=== PATIENT | female | born 1955 | race American Indian/Alaskan Native ===

== ENCOUNTER 2018-02-27 10:46 | Outpatient (CLI) | payer MEDICARE ==
[2018-02-27 12:34] LABS: Hematocrit 33.7 % (30.3-42.9); Hemoglobin 11.3 gm/dl (10.1-14.3); Mean Corpuscular HGB Conc 34 % (30-34); Mean Corpuscular Hemoglobin 29 pg (28-32); Mean Corpuscular Volume 88 fl (79-97); Platelet Count 217 K/mm3 (140-440); Red Blood Count 3.85 M/mm3 (3.65-5.03)
[2018-02-27 12:54] LABS: Alanine Aminotransferase 11 units/L (7-56); Albumin 4.1 g/dL (3.9-5); BUN/Creatinine Ratio 14; Blood Urea Nitrogen 36 mg/dL (7-17); Calcium 9.3 mg/dL (8.4-10.2); Hemolysis Index 36
[2018-02-27 13:02] LABS: Amphetamine Screen,Urine PRESUMPTIVE NEGATIVE; Benzodiazepines Screen,Urine PRESUMPTIVE NEGATIVE; Cannabinoid Screen,Urine PRESUMPTIVE NEGATIVE; Cocaine Screen,Urine PRESUMPTIVE NEGATIVE; Methadone Screen,Urine PRESUMPTIVE NEGATIVE; Opiate Screen,Urine PRESUMPTIVE NEGATIVE
[2018-02-27 13:35] LABS: Hepatitis A Antibody IgM Non-Reactive (NonReactive); Hepatitis B Core IgM Non-Reactive (NonReactive); Hepatitis B Surface Antigen Non-Reactive (Negative); Hepatitis C Virus Antibody Non-Reactive (NonReactive)
== END 2018-02-27 10:47 | disposition home or self-care (01) ==
LOC: LAB 10:46
PROVIDERS: ATTEND Internal Medicine Hematology & Oncology
DX: Z01.818 Encounter for other preprocedural examination (principal); I12.0 Hypertensive chronic kidney disease with stage 5 chronic kidney disease or end stage renal disease; N18.9 Chronic kidney disease, unspecified; E78.00 Pure hypercholesterolemia, unspecified; E03.9 Hypothyroidism, unspecified
CPT/HCPCS: 36415; 80053; 80074; 80307; 85027; 87806

== ENCOUNTER 2018-02-27 12:49 | Outpatient (CLI) | payer MEDICARE ==
--- NOTE | 2018-02-27 15:19 | Fluoroscopy Report ---
UPPER GI AIR CONTRAST: History: Presurgical planning for gastric bypass. FINDINGS: The patient ingested barium without difficulty. The esophageal contour is normal. There are no ulcerations or filling defects seen in the esophagus. There is normal esophageal motility. There is no hiatal hernia or reflux. The gastric contour and position appear normal. There are no ulcerations or filling defects in the stomach. The duodenal bulb and duodenal sweep appear normal. IMPRESSION: Negative double contrast upper GI examination.
== END 2018-02-27 12:50 | disposition home or self-care (01) ==
LOC: FLUORO 12:49
PROVIDERS: ATTEND Internal Medicine Hematology & Oncology
DX: Z01.818 Encounter for other preprocedural examination (principal); R13.10 Dysphagia, unspecified; I12.9 Hypertensive chronic kidney disease with stage 1 through stage 4 chronic kidney disease, or unspecified chronic kidney disease; N18.9 Chronic kidney disease, unspecified; E78.5 Hyperlipidemia, unspecified; E66.9 Obesity, unspecified; E66.01 Morbid (severe) obesity due to excess calories
CPT/HCPCS: 74247

== ENCOUNTER 2019-06-07 09:06 | Outpatient (CLI) | payer MEDICARE, OTHER ==
--- NOTE | 2019-06-07 13:48 | Cat Scan Report ---
CT ABDOMEN AND PELVIS WITHOUT CONTRAST HISTORY: R10.9) ABD PAIN. Acute generalized abdominal pain COMPARISON: CT abdomen/pelvis from 04/24/2017 TECHNIQUE: CT images of the abdomen and pelvis were obtained without administration of intravenous co ntrast. All CT scans at this location are performed using CT dose reduction for ALARA by means of au tomated exposure control. FINDINGS: Lungs/bones: There is minimal bibasilar atelectasis. There are degenerative changes throughout the s pine and pelvis, with left posterior construct at the thoracolumbar junction and segmental kyphosis a gain noted. The intervertebral body fusion device projects left of midline outside of the disc space area as was present on the previous exam. Abdomen/pelvis: The gallbladder is surgically absent. There is a small amount of pneumobilia consist ent with sphincterotomy change. This was also present on the 2017 exam. The liver otherwise appears u nremarkable. The spleen, pancreas, right adrenal gland, and kidneys appear unremarkable. Gastric bypa ss changes are present. Proximal GI tract otherwise appears unremarkable. There is mild left adrenal thickening. Urinary bladder is unremarkable. Uterus is surgically absent. No pelvic free fluid and no acute colon ic abnormality in this patient with diverticulosis. Midline ventral hernia repair change is present without recurrent hernia. IMPRESSION: 1. No acute abnormality identified. 2. Largely unchanged incidental/postoperative findings as above. Signer Name: Anthony Smart MD Signed: 06/07/2019 1:44 PM Workstation Name: [id number]
== END 2019-06-07 09:07 | disposition home or self-care (01) ==
LOC: CT 09:06
PROVIDERS: ATTEND Internal Medicine Gastroenterology
DX: R10.84 Generalized abdominal pain (principal); J98.11 Atelectasis; M47.895 Other spondylosis, thoracolumbar region; Z90.710 Acquired absence of both cervix and uterus; I10 Essential (primary) hypertension; E78.00 Pure hypercholesterolemia, unspecified; E03.9 Hypothyroidism, unspecified; Z90.49 Acquired absence of other specified parts of digestive tract; Z90.89 Acquired absence of other organs
CPT/HCPCS: 36415; 74176; 82565; 84520

== ENCOUNTER 2020-08-11 14:06 | Emergency (ER) | payer MEDICARE ==
[2020-08-11] MEDS ORDERED: fentaNYL 100 MCG/2 ML INJ IV ONE ×2 (14:53→15:59)
[2020-08-11 15:28] LABS: Basophils % (Auto) 0.6 % (0.0-1.8); Eosinophils # (Auto) 0.2 K/mm3 (0.0-0.4); Hematocrit 28.2 % (30.3-42.9); Hemoglobin 9.2 gm/dl (10.1-14.3); Lymphocytes # (Auto) 1.3 K/mm3 (1.2-5.4); Lymphocytes % (Auto) 29.5 % (13.4-35.0); Mean Corpuscular HGB Conc 33 % (30-34); Mean Corpuscular Volume 91 fl (79-97); Monocytes # (Auto) 0.4 K/mm3 (0.0-0.8); Monocytes % (Auto) 8.9 % (0.0-7.3); Platelet Count 142 K/mm3 (140-440); Red Cell Distribution Width 15.2 % (13.2-15.2)
[2020-08-11 15:44] LABS: Calcium 9.5 mg/dL (8.4-10.2)
--- NOTE | 2020-08-11 16:31 | Emergency Department Report ---
ED General Adult HPI - General Chief complaint: Nausea/Vomiting/Diarrhea Stated complaint: BOWEL OBSTRUCTION Time Seen by Provider: 08/11/20 14:47 Source: EMS Mode of arrival: Stretcher Limitations: No Limitations - History of Present Illness Initial comments: Patient is a 64-year-old female who presents with nausea and vomiting and abdominal pain that is been going on for last 9 days. Patient's pain is a 8 out of 10 it is an achy type of pain nothing makes it better and pressing on her abdomen makes it worse. She states she has had this abdominal pain happened before she was sent in by her doctor to rule out a small bowel obstruction. Severity scale (0 -10): 10 - Related Data Home Medications Medication Instructions Recorded Confirmed Last Taken Gabapentin 300 mg PO BID PRN 10/23/13 08/11/20 02/25/14 20:00 300 mg Amlodipine Besylate [Norvasc] 5 mg PO DAILY 04/23/17 08/11/20 Unknown Levothyroxine [Synthroid] 50 mcg PO QAM 04/23/17 08/11/20 Unknown Metoprolol Tartrate 25 mg PO QDAY 04/23/17 08/11/20 Unknown Furosemide [Lasix] 20 mg PO QDAY 08/11/20 08/11/20 Unknown Hydroxyzine HCl [hydrOXYzine] 25 mg PO DAILY 08/11/20 08/11/20 Unknown Potassium Chloride [Klor-Con M15] 10 meq PO DAILY 08/11/20 08/11/20 Unknown Previous Rx's Medication Instructions Recorded Last Taken Type Promethazine [Phenergan] 25 mg PO Q6HR PRN #20 tab 08/11/20 Unknown Rx Allergies Allergy/AdvReac Type Severity Reaction Status Date / Time acetaminophen [From Lortab] Allergy Angioedema Verified 04/19/14 13:40 aspirin Allergy Hives Verified 10/23/13 03:11 hydrocodone bitartrate Allergy Angioedema Verified 04/19/14 13:40 [From Lortab] iodine Allergy Unknown Verified 04/19/14 00:36 ketorolac tromethamine Allergy Hives Verified 04/19/14 13:40 [From Toradol] morphine Allergy Angioedema Verified 10/23/13 03:11 oxycodone HCl [From Percocet] Allergy Hives Verified 10/23/13 03:11 butorphanol tartrate AdvReac Unknown Verified 10/23/13 03:11 [From Stadol] ED Review of Systems ROS: Stated complaint: BOWEL OBSTRUCTION Other details as noted in HPI Constitutional: denies: chills, fever Eyes: denies: eye pain, eye discharge, vision change ENT: denies: ear pain, throat pain Respiratory: denies: cough, shortness of breath, wheezing Cardiovascular: denies: chest pain, palpitations Endocrine: no symptoms reported Gastrointestinal: abdominal pain, nausea, vomiting. denies: diarrhea Genitourinary: denies: urgency, dysuria, discharge Musculoskeletal: denies: back pain, joint swelling, arthralgia Skin: denies: rash, lesions Neurological: denies: headache, weakness, paresthesias Psychiatric: denies: anxiety, depression Hematological/Lymphatic: denies: easy bleeding, easy bruising ED Past Medical Hx - Past Medical History Hx Hypertension: Yes Hx Congestive Heart Failure: No Hx Diabetes: No Hx Renal Disease: Yes (chronic renal insufficiency) Hx Asthma: No Hx COPD: No Additional medical history: polyneuropathy, dz of lumbar region, backache unspecified, gastroparesis, pancreatitis - Surgical History Hx Cholecystectomy: Yes Hx Appendectomy: Yes Additional Surgical History: back surgery (2010), port placed in right chest (2013), umbilical Hernia repair - Social History Smoking Status: Unknown if ever smoked - Medications Home Medications: Home Medications Medication Instructions Recorded Confirmed Last Taken Type Gabapentin 300 mg PO BID PRN 10/23/13 08/11/20 02/25/14 20:00 History 300 mg Amlodipine Besylate [Norvasc] 5 mg PO DAILY 04/23/17 08/11/20 Unknown History Levothyroxine [Synthroid] 50 mcg PO QAM 04/23/17 08/11/20 Unknown History Metoprolol Tartrate 25 mg PO QDAY 04/23/17 08/11/20 Unknown History Furosemide [Lasix] 20 mg PO QDAY 08/11/20 08/11/20 Unknown History Hydroxyzine HCl [hydrOXYzine] 25 mg PO DAILY 08/11/20 08/11/20 Unknown History Potassium Chloride [Klor-Con M15] 10 meq PO DAILY 08/11/20 08/11/20 Unknown History Promethazine [Phenergan] 25 mg PO Q6HR PRN #20 tab 08/11/20 Unknown Rx ED Physical Exam - General Limitations: No Limitations General appearance: alert, in no apparent distress - Head Head exam: Present: atraumatic, normocephalic - Eye Eye exam: Present: normal appearance - ENT ENT exam: Present: mucous membranes moist - Neck Neck exam: Present: normal inspection - Respiratory Respiratory exam: Present: normal lung sounds bilaterally. Absent: respiratory distress - Cardiovascular Cardiovascular Exam: Present: regular rate, normal rhythm. Absent: systolic murmur, diastolic murmur, rubs, gallop - GI/Abdominal GI/Abdominal exam: Present: tenderness (Epigastric tenderness) - Extremities Exam Extremities exam: Present: normal inspection - Back Exam Back exam: Present: normal inspection - Neurological Exam Neurological exam: Present: alert, oriented X3 - Psychiatric Psychiatric exam: Present: normal affect, normal mood - Skin Skin exam: Present: warm, dry, intact, normal color. Absent: rash ED Course Vital Signs 08/11/20 08/11/20 08/11/20 14:20 14:27 14:49 Temperature 98.2 F Pulse Rate 80 81 Respiratory 18 18 18 Rate Blood Pressure 167/102 Blood Pressure 156/81 [Left] O2 Sat by Pulse 99 99 100 Oximetry 08/11/20 17:44 Temperature Pulse Rate 81 Respiratory 18 Rate Blood Pressure Blood Pressure 142/88 [Left] O2 Sat by Pulse 98 Oximetry - Consultations Consultation #1: 08/11/20 18:17 Spoke with patient can be discharged home and can follow-up with the patient in clinic tomorrow. ED Medical Decision Making - Lab Data Result diagrams: 08/11/20 15:05 08/11/20 15:05 Lab Results 08/11/20 08/11/20 08/11/20 Range/Units 15:05 15:05 15:05 WBC 4.4 L (4.5-11.0) K/mm3 RBC 3.10 L (3.65-5.03) M/mm3 Hgb 9.2 L (10.1-14.3) gm/dl Hct 28.2 L (30.3-42.9) % MCV 91 (79-97) fl MCH 30 (28-32) pg MCHC 33 (30-34) % RDW 15.2 (13.2-15.2) % Plt Count 142 (140-440) K/mm3 Lymph % (Auto) 29.5 (13.4-35.0) % [place] % (Auto) 8.9 H (0.0-7.3) % Eos % (Auto) 4.0 (0.0-4.3) % Baso % (Auto) 0.6 (0.0-1.8) % Lymph # (Auto) 1.3 (1.2-5.4) K/mm3 [place] # (Auto) 0.4 (0.0-0.8) K/mm3 Eos # (Auto) 0.2 (0.0-0.4) K/mm3 Baso # (Auto) 0.0 (0.0-0.1) K/mm3 Seg Neutrophils % 57.0 (40.0-70.0) % Seg Neutrophils # 2.5 (1.8-7.7) K/mm3 Sodium 141 (137-145) mmol/L Potassium 4.4 (3.6-5.0) mmol/L Chloride 104.2 (98-107) mmol/L Carbon Dioxide 25 (22-30) mmol/L Anion Gap 16 mmol/L BUN 31 H (7-17) mg/dL Creatinine 2.8 H (0.6-1.2) mg/dL Estimated GFR 21 ml/min BUN/Creatinine Ratio 11 % Glucose 92 (65-100) mg/dL Lactic Acid 0.50 L (0.7-2.0) mmol/L Calcium 9.5 (8.4-10.2) mg/dL Total Bilirubin 0.30 (0.1-1.2) mg/dL AST 14 (5-40) units/L ALT 9 (7-56) units/L Alkaline Phosphatase 106 (35-129) units/L Total Protein 7.2 (6.3-8.2) g/dL Albumin 4.0 (3.9-5) g/dL Albumin/Globulin Ratio 1.3 % - Medical Decision Making Cdx: Gastroparesis ddx: sbo, gastritis I will give IV pain medication I will get CT scan GI cocktail blood work and I will reevaluate the patient Patient still states that she is in pain and nauseated however patient has received multiple IV medications and is resting comfortably in bed on her phone. Given patient had previous abdominal pain like this before in the past with negative CT scans patient most likely has gastroparesis however patient was able to tolerate oral GI cocktail without vomiting so patient does not meet any inpatient criteria and can follow-up with Critical care attestation.: If time is entered above; I have spent that time in minutes in the direct care of this critically ill patient, excluding procedure time. ED Disposition Clinical Impression: Morbid obesity with BMI of 50.0-59.9, adult, Gastroparesis, Nausea Abdominal pain Qualifiers: Abdominal location: epigastric Qualified Code(s): R10.13 - Epigastric pain Disposition: - TO HOME OR SELFCARE Is pt being admited?: No Does the pt Need Aspirin: No Condition: Stable Instructions: Abdominal Pain (ED) Prescriptions: Promethazine [Phenergan] 25 mg PO Q6HR PRN #20 tab PRN Reason: Nausea
--- NOTE | 2020-08-11 16:41 | Cat Scan Report ---
CT abdomen pelvis wo con INDICATION: abd and nausea. COMPARISON: 06/07/2019 TECHNIQUE: Abdominal and pelvic CT exam performed. All CT scans at this location are performed using CT dose reduction for ALARA by means of automated exposure control. FINDINGS: CT ABDOMEN and PELVIS: Lung Bases: No significant abnormality. Liver: No significant abnormality. Biliary: Gallbladder surgically absent. Small quantity of pneumobilia which is similar to prior exami nation. Spleen: No significant abnormality. Pancreas: No significant abnormality. Adrenals: No significant abnormality. Kidneys: No significant abnormality. Lymphatics: No lymphadenopathy. Vasculature: No significant abnormality. Bowel: No significant abnormality. Postoperative changes from prior gastric sleeve resection.Appendix is nonvisualized. However, no inflammatory changes in the right lower quadrant to suggest appendicit is. Pelvis: No significant abnormality. Osseous Structures: Postoperative changes with severe height loss of T11-T12. Osseous fusion across t he construct. Focal kyphosis at this level. Findings of diffuse idiopathic skeletal hyperostosis. No acute osseous abnormality. Additional Findings: Prior postoperative changes from ventral abdominal wall hernia repair. IMPRESSION: 1. No acute abnormality of the abdomen or pelvis. Signer Name: Jamie Lema MD Signed: 08/11/2020 4:36 PM Workstation Name: [id number]
[2020-08-11] MEDS ORDERED: diphenhydrAMINE 50 MG/ML VIAL IV ONE (16:48)
[2020-08-11] MEDS ORDERED: MORPHINE 4 MG/1 ML INJ IV ONE (16:48)
[2020-08-11] MEDS ORDERED: METOCLOPRAMIDE 10 MG/2 ML INJ IV ONE (17:28)
[2020-08-11] MEDS ORDERED: HYDROmorphone 1 MG/1 ML INJ IV ONE (17:28)
[2020-08-11] MEDS ORDERED: ALUM-MAG HYDROXIDE-SIMETHICONE 200-200-20MG/5ML ORAL LIQD 30 ML PO ONE (17:29)
[2020-08-11] MEDS ORDERED: LIDOCAINE VISCOUS 2% 15 ML ORAL LIQD PO ONE (17:29)
[2020-08-11 17:48] VITALS: BP 142/88
== END 2020-08-11 21:34 | disposition home or self-care (01) ==
LOC: ED 14:06
DX: K31.84 Gastroparesis (principal); R11.2 Nausea with vomiting, unspecified; R10.9 Unspecified abdominal pain; E66.01 Morbid (severe) obesity due to excess calories; Z68.43 Body mass index [BMI] 50.0-59.9, adult; I10 Essential (primary) hypertension; Z90.49 Acquired absence of other specified parts of digestive tract; Z98.890 Other specified postprocedural states; Z79.899 Other long term (current) drug therapy; Z88.8 Allergy status to other drugs, medicaments and biological substances
CPT/HCPCS: 36415; 74176; 80053; 82140; 85025; 96374; 96375; 96376; 99284; J1170; J1200; J1642; J2270; J2765; J3010